=== PATIENT | female | born 1955 | race Caucasian/White ===

== ENCOUNTER 2024-12-28 10:32 | Emergency (ER) | payer MEDICARE, OTHER, SELFPAY ==
[2024-12-28 10:36] VITALS: BP 224/109
[2024-12-28 11:06] LABS: % Basophils 0.5 % (0-2); % Eosinophils 2.4 % (0-6); % Immature Granulocytes 0.4 % (0-0.5); % Lymphocytes 16.7 % (20.5-51.1); Absolute Eosinophils 0.1 10^3/uL (0-0.7); Absolute Lymphocytes 0.9 10^3/uL (1.2-3.4); Absolute Monocytes 0.3 10^3/uL (0.1-0.6); Absolute Neutrophils 4.1 10^3/uL (1.4-6.5); Hematocrit 39.7 % (37.0-47.0); Mean Corp Hgb Conc. 32.7 g/dL (33.0-37.0); Mean Corpuscular Hgb 30.8 pg (27.0-31.0); Mean Corpuscular Volume 94.1 fL (81.0-99.0); Mean Platelet Volume 10.7 fL (7.4-10.4); Nucleated Red Blood Cells % 0 %; Platelet Count 168 10^3/uL (130-400); Red Blood Cell Count 4.22 10^6/uL (4.20-5.40); Red Cell Dist. Width 13.4 % (11.5-14.5); White Blood Cell Count 5.5 10^3/uL (4.8-10.8)
[2024-12-28 11:21] LABS: ALT (SGPT) 27 U/L (0-35); AST (SGOT) 30 U/L (14-36); Alkaline Phosphatase 68 U/L (38-126); Blood Urea Nitrogen 17 mg/dl (7-17); Calcium 10.7 mg/dl (8.4-10.2); Carbon Dioxide 27 mmol/L (22-30); Chloride 109 mmol/L (98-107); Glucose 131 mg/dl (70-99); Potassium 3.8 mmol/L (3.5-5.1); Sodium 141 mmol/L (135-145); Total Bilirubin 1.5 mg/dl (0.2-1.3); Total Protein 6.5 g/dl (6.3-8.2); eGFR > 60.00
[2024-12-28 12:39] VITALS: BP 234/98
[2024-12-28 13:00] VITALS: BP 151/98
--- NOTE | 2024-12-28 13:02 | ED.GENMED ---
History of Present Illness
<Edgar Elder PA-C - Last Filed: 12/29/24 08:21>
General
Chief Complaint: Fall
Time Seen by Provider: 12/28/24 12:17
History of Present Illness
History of Present Illness:
69-year-old female presents to the emergency department for evaluation of a fall after a syncopal event. She states she simply lost consciousness while walking down the stairs, fell down approximately 4 stairs. She reports head and neck pain as
well as left gluteal and right ankle pain. Currently reports nausea and dizziness. She is not sure if she is anticoagulated or not, there is a mild language barrier however interpretation was used for evaluation. Has no chest pain or shortness of
breath
Review of Systems
<Edgar Elder PA-C - Last Filed: 12/29/24 08:21>
Review of Systems
Allergies reviewed?: Yes
All Other Systems: ROS reviewed and negative except as documented in HPI and ROS
Phy Exam
<Edgar Elder PA-C - Last Filed: 12/29/24 08:21>
Physical Exam
Physical Exam:
GEN: Well appearing, NAD, WDWN
HEENT: Ecchymosis to the L parietal scalp, no cephalohematoma; Oral mucosa moist, no scleral icterus, no nasal congestion
Cardiac: Regular rate
Lung: No respiratory distress, no tachypnea
MSK: No gross deformity or injuries
Skin: Good color, no pallor or jaundice, no rashes
Neuro: AO x3; CN II-XII grossly intact. BUE strength 5/5 in all hoyos, sensation intact and symmetric. BLE strength 5/5 in all hoyos, sensation intact and symmetric
Psych: Calm, cooperative
Course
<Edgar Elder PA-C - Last Filed: 12/29/24 08:21>
Orders/Labs/Results
Orders:
Orders
12/28/24 10:47
Electrocardiogram (*1) Urgent
Reason for Study: Chest Pain
EKG- Treatment ONCE
12/28/24 10:50
Complete Blood Count/With Diff Urgent
Comprehensive Metabolic Panel Urgent
12/28/24 12:41
CT Cervical Spine W/o Iv Contr Urgent
Comment:
Reason For Exam: fall neck pain
CT Head W/o Iv Contrast Urgent
Comment:
Reason For Exam: fall head injury
Ankle, Right 3 view CR [CR Ankle - Right Min 3 Views *] Urgent
Comment:
Reason For Exam: fall
CR Hip - LT w/wo Pel 2-3 Vw* Urgent
Comment:
Reason For Exam: fall L hip pain
Include a pelvis x-ray?: Yes
12/28/24 16:22
Amlodipine [Norvasc] 5 mg PO NOW STA
HydrALAZINE [Apresoline] 50 mg PO NOW STA
12/28/24 16:23
Carvedilol [Coreg] 6.25 mg PO NOW STA
12/28/24 16:37
Meclizine [Antivert] 25 mg .ROUTE .STK-MED ONE
Meclizine [Antivert] 25 mg PO NOW STA
Abnormal Lab Results
12/28/24
10:50
MCHC 32.7 L g/dL
(33.0-37.0)
MPV 10.7 H fL
(7.4-10.4)
Absolute Lymphs (auto) 0.9 L 10^3/uL
(1.2-3.4)
Lymphocytes % 16.7 L %
(20.5-51.1)
Chloride 109 H mmol/L
(98-107)
Glucose 131 H mg/dl
(70-99)
Calcium 10.7 H mg/dl
(8.4-10.2)
Total Bilirubin 1.5 H mg/dl
(0.2-1.3)
12/28/24 10:50
12/28/24 10:50
Vital Signs
Initial and Last Documented VS:
Initial Vital Signs
Temp Pulse Resp BP Pulse Ox
98.5 F 78 20 224/109 98
12/28/24 10:36 12/28/24 10:36 12/28/24 10:36 12/28/24 10:36 12/28/24 10:36
Last Documented Vital Signs
Temp Pulse Resp BP Pulse Ox
98.5 F 74 18 159/99 98
12/28/24 10:36 12/28/24 17:24 12/28/24 17:24 12/28/24 17:24 12/28/24 12:42
<ALFREDO Mckeon - Last Filed: 12/28/24 17:47>
Orders/Labs/Results
Orders:
Orders
12/28/24 10:47
Electrocardiogram (*1) Urgent
Reason for Study: Chest Pain
EKG- Treatment ONCE
12/28/24 10:50
Complete Blood Count/With Diff Urgent
Comprehensive Metabolic Panel Urgent
12/28/24 12:41
CT Cervical Spine W/o Iv Contr Urgent
Comment:
Reason For Exam: fall neck pain
CT Head W/o Iv Contrast Urgent
Comment:
Reason For Exam: fall head injury
Ankle, Right 3 view CR [CR Ankle - Right Min 3 Views *] Urgent
Comment:
Reason For Exam: fall
CR Hip - LT w/wo Pel 2-3 Vw* Urgent
Comment:
Reason For Exam: fall L hip pain
Include a pelvis x-ray?: Yes
12/28/24 16:22
Amlodipine [Norvasc] 5 mg PO NOW STA
HydrALAZINE [Apresoline] 50 mg PO NOW STA
12/28/24 16:23
Carvedilol [Coreg] 6.25 mg PO NOW STA
12/28/24 16:37
Meclizine [Antivert] 25 mg .ROUTE .STK-MED ONE
Meclizine [Antivert] 25 mg PO NOW STA
Abnormal Lab Results
12/28/24
10:50
MCHC 32.7 L g/dL
(33.0-37.0)
MPV 10.7 H fL
(7.4-10.4)
Absolute Lymphs (auto) 0.9 L 10^3/uL
(1.2-3.4)
Lymphocytes % 16.7 L %
(20.5-51.1)
Chloride 109 H mmol/L
(98-107)
Glucose 131 H mg/dl
(70-99)
Calcium 10.7 H mg/dl
(8.4-10.2)
Total Bilirubin 1.5 H mg/dl
(0.2-1.3)
12/28/24 10:50
12/28/24 10:50
Vital Signs
Initial and Last Documented VS:
Initial Vital Signs
Temp Pulse Resp BP Pulse Ox
98.5 F 78 20 224/109 98
12/28/24 10:36 12/28/24 10:36 12/28/24 10:36 12/28/24 10:36 12/28/24 10:36
Last Documented Vital Signs
Temp Pulse Resp BP Pulse Ox
98.5 F 74 18 159/99 98
12/28/24 10:36 12/28/24 17:24 12/28/24 17:24 12/28/24 17:24 12/28/24 12:42
<ALFREDO Mckeon - Last Filed: 12/28/24 17:47>
MDM/Problems Addressed
MDM/Problems Addressed:
Assumed care of patient, labs unremarkable. CAT scans of head and cervical spine are negative hip and ankle x-ray negative.
Patient tells me she does not believe she passed out she feels that she missed a step and then felt a little dizzy.
Patient feeling a little dizzy/lightheaded now. She is hypertensive but did not take her medicine today. She denies any headache. Family reports patient is not was compliant with her blood pressure medicine.
Pt was given her bp meds, bp improved.
dizziness improved and feeling much better. i did give a dose of meclizine however now again after speaking with pt ,this brooks not seem like vertigo .
Patient ambulated steady in no acute distress currently denies dizziness denies headache blood pressure improved. Will patient follow-up with family doctor.
Chronic conditions affecting care:
htn, non compliant with meds
<ALFREDO Mckeon - Last Filed: 12/28/24 17:47>
*Critical Care Note
Total Time (30-74mins, 75-104mins- exclusive of procedures): Not Applicable
ED Attending Note
<Edgar Elder PA-C - Last Filed: 12/29/24 08:21>
-
Portions of this chart may have been created with voice recognition software.� Occasional wrong word or��sound alike� substitutions may have occurred due to the inherent limitations of voice recognition software.
Discharge Plan
Departure
Patient Disposition: Home (Routine Discharge)
Date of Disposition: 12/28/24
Time of Disposition: 17:45
Patient with high blood pressure during this ER visit?: Yes
Condition: Fair
Covid-19: Not Applicable
Discharge Problem:
Dizziness, elevated blood pressure
Instructions: Dizziness in adults - ED discharge instructions, BLOOD PRESSURE
Referrals:
Patricia Jackson MD [Family Provider] -
Activity Restrictions/Additional Instructions:
Please continue to take your blood pressure medicine as previously prescribed because your blood pressure was elevated here in the ER. Follow-up close with your family doctor copywriter. Return if any worsening of symptoms.
Interventions
Interventions:
*Risk Screen - Suicide Last Done: 12/28/24 10:36
*General Assessment Last Done: 12/28/24 10:36
*Neglect/Abuse Screening Last Done: 12/28/24 10:36
*ED- Fall Risk Assessment Last Done: 12/28/24 12:42
*ED COVID-19 Vaccine History Last Done: 12/28/24 12:42
*Nursing Disposition Last Done: 12/28/24 17:50
ED-Musculoskeletal Assessment Last Done: 12/28/24 12:42
ED- Neurological Assessment Last Done: 12/28/24 12:42
ED-Skin Assessment Last Done: 12/28/24 12:42
Discharge Date and Time
Discharge Date/Time: 12/28/24 17:51
Print Language: LAO
[2024-12-28 15:38] VITALS: BP 176/107
[2024-12-28] MEDS: APRESOLINE 50 MG PO (16:33)
[2024-12-28] MEDS: COREG 6.25 MG PO (16:33)
[2024-12-28] MEDS: NORVASC 5 MG PO (16:33)
[2024-12-28] MEDS: ANTIVERT 25 MG PO (16:38)
[2024-12-28 17:24] VITALS: BP 159/99
== END 2024-12-28 17:51 | disposition home or self-care (01) ==
LOC: EMR 10:32
PROVIDERS: EMERGENCY PHYSICIAN Student in an Organized Health Care Education/Training Program; FAMILY PHYSICIAN Internal Medicine
DX: R55 Syncope and collapse (principal); R11.0 Nausea; S00.03XA Contusion of scalp, initial encounter; M25.571 Pain in right ankle and joints of right foot; M54.2 Cervicalgia; R51.9 Headache, unspecified; M25.552 Pain in left hip; W10.9XXA Fall (on) (from) unspecified stairs and steps, initial encounter; Y93.01 Activity, walking, marching and hiking; R03.0 Elevated blood-pressure reading, without diagnosis of hypertension; Z91.148 Patient's other noncompliance with medication regimen for other reason
CPT/HCPCS: 99285; 70450; 72125; 73502; 73610; 80053; 85025; 93005